=== PATIENT | male | born 1950 | race Caucasian/White ===

== ENCOUNTER 2020-07-12 15:21 | Outpatient (CLI) | payer OTHER, SELFPAY | END 2020-07-12 15:22 | disposition home or self-care (01) | LOC: ANHCOVIDVC 15:21 | PROVIDERS: PCP Family Medicine | DX: Z23 Encounter for immunization (principal) | CPT/HCPCS: 0001A; 91300 ==

== ENCOUNTER 2020-08-02 15:04 | Outpatient (CLI) | payer OTHER, SELFPAY | END 2020-08-02 15:05 | disposition home or self-care (01) | LOC: ANHCOVIDVC 15:05 | PROVIDERS: PCP Family Medicine | DX: Z23 Encounter for immunization (principal) | CPT/HCPCS: 0002A; 91300 ==

== ENCOUNTER 2021-05-24 11:30 | Emergency (ER) | payer MEDICAID, SELFPAY ==
--- NOTE | 2021-05-24 11:33 | ED.CPR ---
HPI - CPR General Chief Complaint: Cardiac Arrest/CPR Stated Complaint: code blue History of Present Illness HPI narrative: patient arrived to ED by EMS. Patient had a witnessed arrest at home and EMS was called. Patient did not have CPR after becoming unresponsive and had approximately 5 minutes of downtime prior to CPR being initiated by EMS. Patient had approximately 45 minutes of CPR. During that time he was intubated and did have four rounds of epi. Upon arrival to the emergency department airway was rechecked. Patient was given 5th round of IV epi. Bedside ultrasound patient had no cardiac activity. Time of was called at 1127. Pastoral services did update the patient's family. Nursing did talk to the patient's 's PCP. Patient did not have a PCP. Related Data Allergies Allergy/AdvReac Type Severity Reaction Status Date / Time No Known Allergies Allergy Unverified 05/23/19 11:15 Review of Systems Review of Systems: ROS unobtainable: Yes unobtainable due to endotracheal tube and unobtainable due to medical condition Exam Const: General: ill appearing Limitations: altered mental status (unresponsive) HENMT: Head: normal to inspection Eyes: Other: Pupils fixed and dilated Neck: Neck: normal visual inspection Chest: Other: Patient intubated with distant breath sounds Resp: Other: Distant breath sounds Cardio: Other: PEA. On bedside ultrasound patient had no cardiac activity GI: Inspection: distended Neuro: Other: Unresponsive Course Course Emergency Course: Patient course also described in the HPI Vital Signs Vital signs: Vital Signs Pulse Rate 30 L 05/24/21 11:36 Pulse Rate 30 L 05/24/21 11:36 MDM - Cardiac Arrest/CPR Differential Diagnosis Differential diagnosis: Likely acute massive pulmonary embolism, acute respiratory failure, acute myocardial infarction, cardiac arrest and sudden cardiac Discharge Plan Discharge Clinical Impression: Cardiac arrest Patient Disposition: Condition: Follow-up/Referrals: Riya Tejeda MD [Primary Care Provider] -
[2021-05-24 11:36] VITALS: PULSE 30
--- NOTE | 2021-05-24 11:46 | PC.NURSE ---
1123 Arrival to room. 1124 Epi given 1125 ERP obtained bedside ultrasound, no cardiac activity. 1124 Time of .
--- NOTE | 2021-05-24 13:20 | PC.NURSE ---
Dr. Riya Hassan states she will sign the certificate.
--- NOTE | 2021-05-24 13:33 | PC.NURSE ---
1124 Time of 1216 [facility]TS called 1226 Professor Of Social Work mary notified 1302 Dr. Ritter states she will sign certificiate 1333 Pt to [facility] [place], corner formermaria fernanda hernandez states this is not a coroners case. [facility] is aware pt is in [place].
== END 2021-05-24 13:34 | disposition expired ==
LOC: ANHED 11:47
PROVIDERS: Emergency Provider Emergency Medicine; PCP Family Medicine
DX: I46.9 Cardiac arrest, cause unspecified (principal)
CPT/HCPCS: 92950; 99285